=== PATIENT | male | born 1985 | race Caucasian/White ===

== ENCOUNTER 2017-06-23 08:19 | Emergency (ER) | payer OTHER, SELFPAY ==
[2017-06-23 08:20] VITALS: BP 141/81; PULSE 81; RESP 16; TEMP 36.7; O2SAT 100; BMI 33.7
[2017-06-23] MEDS: Diphth,Pertuss(Acell),Tet Vac 0.5 ML Vial IM (09:02)
--- NOTE | 2017-06-23 09:07 | ED.DCSUM_ITS ---
- ER Visit Summary Date of Service: 06/23/17 Chief Complaint: Hand laceration History of Present Illness: The patient is a 32 M who presents with a hand laceration. He was cutting a potato and his knife slipped and he sustained a laceration to his left palm. He is uncertain of his last tetanus immunization. He denies any paresthesias weakness loss of function. No other injuries. Physical Examination: Afebrile vitals are stable There is a 1-1/2 cm laceration of the left palm proximal to the fourth and fifth digits with no active bleeding he has active full range of motion of the hand and digits brisk capillary refill and normal distal sensation to light touch Test Results: Not indicated Emergency Department Course and Treatment: Tetanus immunization was updated. Laceration was anesthetized with 2 cc of local 1% lidocaine and 3 simple interrupted 4-0 nonabsorbable sutures were placed. Patient instructed on local wound care. Treatment Plan: [] Disposition: Discharge Impression: Hand laceration This note was generated with [employer] dictation software. It may contain incorrect words, spelling, and punctuation that were not noted in review of the chart prior to signing ED Disposition - Plan for ED Patient: Chief Complaint: Laceration Referrals: Sabine Roldan NP-C [Primary Care Provider] -
--- NOTE | 2017-06-23 09:07 | ED.DEP ---
ED Disposition - Plan for ED Patient: Chief Complaint: Laceration Instructions: ED Laceration Hand Referrals: Sabine Roldan, CECILIA-C [Primary Care Provider] -
[2017-06-23 09:09] VITALS: BP 125/77; PULSE 68; RESP 15; O2SAT 98
== END 2017-06-23 09:11 | disposition home or self-care (01) ==
PROVIDERS: Emergency Provider Emergency Medicine; Family Provider Nurse Practitioner Primary Care; PCP Nurse Practitioner Primary Care
DX: S61.412A Laceration without foreign body of left hand, initial encounter (principal); Z23 Encounter for immunization; W26.0XXA Contact with knife, initial encounter; Y93.G1 Activity, food preparation and clean up; Y92.89 Other specified places as the place of occurrence of the external cause; Y99.8 Other external cause status
CPT/HCPCS: 12001; 90471; 90715; 99283

== ENCOUNTER 2018-01-21 08:34 | Emergency (ER) | payer OTHER, SELFPAY ==
[2018-01-21 08:35] VITALS: BP 153/88; PULSE 91; RESP 16; TEMP 36.6; O2SAT 98; BMI 33.0
--- NOTE | 2018-01-21 08:50 | RAD_ITS ---
STUDY: X-RAY CHEST REASON FOR EXAM: Male, 32 years old. Chest and back pain. Left upper quadrant pain. TECHNIQUE: Single AP portable view of the chest. COMPARISON: None. FINDINGS: The lungs are clear and expanded. Scattered calcified granulomas. There is no demonstrated pleural abnormality. Normal size heart. Normal mediastinum and celeste. Normal visualized pulmonary arteries. Normal visualized aortic arch and descending thoracic aorta. Normal visualized thoracic spine. Normal visualized ribs, clavicles, and shoulders. There is no demonstrated abnormality of the visualized soft tissue structures of the upper abdomen. RAD/Chest 1 View (Portable) IMPRESSION: No acute abnormality is seen. Electronically Signed: Deepak Nieto MD at 9:20 EDT Tel [phone], Service support ,
--- NOTE | 2018-01-21 08:51 | EKG12_ITS ---
Test Reason : OTHER PAIN Blood Pressure : / mmHG Vent. Rate : 076 BPM Atrial Rate : 076 BPM P-R Int : 160 ms QRS Dur : 090 ms QT Int : 354 ms P-R-T Axes : 015 017 023 degrees QTc Int : 398 ms Normal sinus rhythm Normal ECG Confirmed by STEVE REYNA MD ([id number]), manager editorial NASIM BURRELL ([id number] on 01/22/2018 1:29:11 PM Referred By: NUSRAT Confirmed By:STEVE REYNA MD
--- NOTE | 2018-01-21 08:54 | NURSING ---
NO OLD EKGS
[2018-01-21 09:26] LABS: Absolute Lymphocyte Count 2.25 X10^3/ul (0.83-4.51); Absolute Neutrophil Count 3.1 X10^3/uL (2.0-7.7); Basophil# 0.03 X10^3/uL; Basophil% 0.5 % (0-1); Eosinophil# 0.14 X10^3/uL; Eosinophils% 2.3 % (0-5); Hematocrit 41.4 % (40-54); Hemoglobin 14.6 g/dl (13.0-16.5); Lymphocyte # 2.25 X10^3/ul (4.0); Lymphocyte % 37.7 % (19-41); Mean Corp Hgb Conc 35.3 g/gl (32-36); Mean Corpuscular Hgb 29.4 pg (27.0-32.0); Mean Corpuscular Volume 83.3 fL (80-94); Mean Platelet Vol. 10.8 fl (6.2-12.0); Monocyte% 6.7 % (0-10); Neutrophil # 3.14 X10^3/uL (2.7-7.7); Neutrophil % 52.6 % (47-70); POSITIVE COUNT NO; POSITIVE DIFFERENTIAL NO; POSITIVE MORPHOLOGY NO; Platelet Count 238 K/mm3 (150-450); RBC Distribution Width CV 12.2 % (11.6-14.6); RBC Distribution Width SD 36.5 fl (35.1-43.9); Red Blood Count 4.97 M/mm3 (4.6-6.2)
[2018-01-21 09:36] LABS: ALB/GLOB Ratio 1.1 RATIO (0.9-2.4); AST(SGOT) 15 U/L (15-37); Alanine Aminotransfer ALT/SGPT 39 U/L (16-61); Alkaline Phosphatase 70 U/L (45-117); Anion Gap 8 (5-15); BUN 14 mg/dL (7-18); BUN/Creat Ratio 15.9 RATIO (10-20); Calcium,Total 8.9 mg/dL (8.5-10.1); Chloride 103 mmol/L (98-107); Creatinine, Serum 0.88 mg/dL (0.70-1.30); D-Dimer Quantitative (DVT/PE) < 0.27 FEU/ug/m (0.27-0.49); EST Glomerular Filtration Rate 106 mL/min (>60); Est Glom Filt Rate - Afr Amer 128 mL/min (>60); Estimated Creatinine Clearance 123.28 ml/min; Globulin 3.5 g/dL (2.2-4.2); Glucose 88 mg/dL (74-106); Lipase 61 U/L (73-393); Potassium 3.9 mmol/L (3.5-5.1); Protein, Total 7.5 g/dL (6.4-8.2); Sodium Level 138 mmol/L (136-145)
--- NOTE | 2018-01-21 09:43 | ED.VISSUMM ---
- ER Visit Summary Date of Service: 01/21/18 Chief Complaint: [Chest and abdomen pain] History of Present Illness: The patient is a 32 M [presents the emergency department complaint of chest and abdomen pain that started about 3 weeks ago. Patient states that he has a continuous minimal discomfort in his upper abdomen and at times will bit of a tightness in his left chest. Patient states that he really does not notice it much when he is active and it certainly is not worse with exertion. He denies any radiation of discomfort into the arm or neck or jaw. His family wanted to have him come in and get it evaluated. Patient denies any injury. Patient does state that he has been renovating around his house and has been more active at home. He denies recent travel or surgery. The pain is not made worse by eating. He really cannot reproduce the pain by pushing on it. He has not had discomfort like this before. Patient's only medical history is that he has had some chronic back pain issues and is had to back surgeries. Patient denies family history of heart disease.] Physical Examination: [HEENT-PERRLA, EOMI. Cranial nerves II through XII grossly intact. TMs clear. Mucous membranes moist. No adenopathy. Cardiovascular-regular rate and rhythm without murmur or ectopy Lungs-clear to auscultation, chest wall stable without crepitus or subcu emphysema Abdomen-normoactive bowel sounds, soft, nontender, no rebound or rigidity, no peritoneal signs. Extremities-intact ?4, normal range of motion, normal pulses, atraumatic] Test Results: [EKG obtained on arrival showed a sinus rhythm with a ventricular rate of 76 bpm with no acute ST segment changes. CBC with differential was normal. Liver enzymes were normal. Chemistries were normal. Troponin was less than 0.015. D-dimer was less than 0.27. Chest x-ray was normal.] Emergency Department Course and Treatment: [] Treatment Plan: [At this point I do not feel any further imaging is indicated given that his abdominal exam is benign. Patient advised to follow-up with his primary care physician within next 5-7 days.] Disposition: [Discharged home in stable condition] Impression: [Abdominal pain-etiology uncertain Chest pain-etiology uncertain] This note was generated with [employer] software. It may contain incorrect words, spelling, and punctuation that were not noted in review of the chart prior to signing ED Disposition - Plan for ED Patient: Chief Complaint: Other, Pain/Inj Referrals: Sabine Roldan, ASSISTANT LABORATORY DIRECTOR-C [Primary Care Provider] -
--- NOTE | 2018-01-21 09:47 | ED.DEP ---
ED Disposition - Plan for ED Patient: Chief Complaint: Other, Pain/Inj Instructions: ED Abdominal Pain Unkn Cause Male, ED Chest Pain Atypical Unkn Cause Referrals: Sabine Roldan NP-C [Primary Care Provider] - Additional Instructions: See your doctor in 5-7 days for a repeat exam
== END 2018-01-21 10:37 | disposition home or self-care (01) ==
LOC: ED 08:57
PROVIDERS: Emergency Provider Emergency Medicine; Family Provider Nurse Practitioner Primary Care; PCP Nurse Practitioner Primary Care
DX: R07.9 Chest pain, unspecified (principal); R10.10 Upper abdominal pain, unspecified
CPT/HCPCS: 71045; 80053; 83690; 84484; 85025; 85379; 93005; 99283; A4216

== ENCOUNTER → 2024-10-20 | Outpatient (CLI) | payer OTHER, SELFPAY ==
[2024-10-20 18:00] LABS: Absolute Lymphocyte Count 3.12 X10^3/uL (0.83-4.51); Absolute Neutrophil Count 4.5 X10^3/uL (2.0-7.7); Basophil# 0.07 X10^3/uL; Basophil% 0.8 % (0-1); Eosinophil# 0.17 X10^3/uL; Hemoglobin 14.1 g/dL (13.0-16.5); Lymphocyte # 3.12 X10^3/ul (0.83-4.51); Lymphocyte % 37.4 % (19-41); Mean Corp Hgb Conc 33.6 g/dL (32-36); Mean Corpuscular Hgb 28.7 pg (27.0-32.0); Mean Corpuscular Volume 85.4 fL (80-94); Mean Platelet Vol. 10.8 fl (6.2-12.0); Monocyte# 0.46 X10^3/uL; Monocyte% 5.5 % (0-10); NRBC Flagged by Analyzer 0 % (0-5); Neutrophil # 4.52 X10^3/uL (2.7-7.7); Neutrophil % 54.2 % (47-70); Platelet Count 280 K/mm3 (150-450); RBC Distribution Width CV 12.4 % (11.6-14.6); RBC Distribution Width SD 38.5 fl (35.1-43.9); Red Blood Count 4.92 M/mm3 (4.6-6.2); White Blood Count 8.4 K/mm3 (4.4-11.0)
[2024-10-20 18:32] LABS: ALB/GLOB Ratio 1.7 RATIO (0.9-2.4); AST(SGOT) 23 U/L (<=37); Alanine Aminotransfer ALT/SGPT 40 U/L (<=46); Albumin, Serum 4.7 g/dL (3.5-5.0); Alkaline Phosphatase 71 U/L (40-129); Anion Gap 12 (5-15); BUN 19 mg/dL (4-19); BUN/Creat Ratio 20.5 RATIO (10-20); Calcium,Total 9.5 mg/dL (7.6-11.0); Carbon Dioxide 24.2 mmol/L (21.0-32.0); Chloride 103 mmol/L (98-108); Cholesterol 232 mg/dL (<=200); Creatinine, Serum 0.91 mg/dL (0.70-1.20); EST Glomerular Filtration Rate 109 (>60); Globulin 2.8 g/dL (2.2-4.2); Glucose 81 mg/dL (70-99); High Density Lipoprotein 52 mg/dL; Low Density Lipoprotein Calc. 169 mg/dL; Potassium 4.2 mmol/L (3.3-5.1); Protein, Total 7.5 g/dL (5.9-8.4); Sodium Level 139 mmol/L (133-145); Total Bilirubin 1.29 mg/dL (0.00-1.30); Triglycerides 58 mg/dL; Very Low Density Lipoprotein 12 mg/dL (5-40); cholesterol:hdl ratio screen 4.48
[2024-10-25 13:08] LABS: Vitamin D 1,25-Dihydroxy 45.1 pg/mL (24.8-81.5)
== END | disposition home or self-care (01) ==
LOC: MFPLAB 15:04
PROVIDERS: PCP Nurse Practitioner Primary Care; Visit Provider Family Medicine
DX: Z00.00 Encounter for general adult medical examination without abnormal findings (principal); Z13.220 Encounter for screening for lipoid disorders; Z13.1 Encounter for screening for diabetes mellitus; R53.83 Other fatigue
CPT/HCPCS: 36415; 80053; 80061; 82652; 85025

== ENCOUNTER → 2025-04-05 | Outpatient (CLI) | payer OTHER, SELFPAY ==
--- NOTE | 2025-04-05 14:58 | RAD_ITS ---
PROCEDURE: ABDOMEN SINGLE VIEW 04/05/2025 REASON FOR EXAM: KUB- FLANK PAIN TECHNIQUE: Procedure Code: RADABD Modality: DX Procedure: ABDOMEN SINGLE VIEW COMPARISON: None FINDINGS: There is a nonobstructive bowel gas pattern. There are no abnormal soft tissue calcifications project over either renal outline or along the path of either ureter. There are no bony abnormalities. RAD/Abdomen Single View IMPRESSION: NO ACUTE FINDINGS Reading Location: [id number]
== END | disposition home or self-care (01) ==
LOC: MTRAD 14:57
PROVIDERS: PCP Family Medicine; Referring Provider Family Medicine; Visit Provider Family Medicine
DX: R10.A0 Flank pain, unspecified side (principal)
CPT/HCPCS: 74018